=== PATIENT | male | born 1960 | race Caucasian/White ===

== ENCOUNTER 2019-04-16 07:08 | Day surgery (SDC) | payer OTHER ==
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
[2019-04-16] VITALS (19 sets, daily range): BP systolic 100–134; BP diastolic 63–82; PULSE 58–75; RESP 10–17; Ht 170.2 cm; Wt 91.5 kg
[~2019-04-16] VITALS: Ht 170.2 cm; Wt 91.5 kg
[~2019-04-16 07:08] MED LIST: ATOR-2 PO; ERGO2000 PO; INSU100I33 SC; LISI10TA2 PO; PANT40TA3 PO; SITA1TBM4 PO
[2019-04-16] MEDS ORDERED: SOD CHLORIDE 0.9% 1,000 ML IV SCH (07:38)
[2019-04-16] MEDS ORDERED: FENTAnyl 50 MCG/ML VIAL ONE (10:00)
[2019-04-16] MEDS ORDERED: MIDAZOLAM 1 MG/ML 2 ML INJ ONE (10:00)
[2019-04-16] MEDS ORDERED: LIDOCAINE 1% (MDV) 20 ML INJ ONE (10:09)
[2019-04-16] MEDS ORDERED: IODIXANOL LOCM 50 ML BTL ONE ×2 (10:30→10:58)
[2019-04-16] MEDS ORDERED: FENTAnyl 50 MCG/ML VIAL IV ONE ×3 (10:55→12:04)
[2019-04-16] MEDS ORDERED: HYDROCODONE/APAP (5/325) TAB PO ONE (13:00)
[2019-04-16] MEDS ORDERED: MIDAZOLAM 1 MG/ML 2 ML INJ IV ONE (13:30)
== END 2019-04-16 16:24 | disposition home or self-care (01) ==
LOC: SDS 07:08
PROVIDERS: ATTEND Nuclear Medicine
DX: D18.09 Hemangioma of other sites (principal); K76.0 Fatty (change of) liver, not elsewhere classified; R16.0 Hepatomegaly, not elsewhere classified; I10 Essential (primary) hypertension; Z85.038 Personal history of other malignant neoplasm of large intestine
CPT/HCPCS: 77012; 82962; 88307; 88313; J2250; J3010; Q9967